=== PATIENT | male | born 1945 | race Asian ===

== ENCOUNTER 2017-10-25 09:07 | Inpatient (IN) | payer MEDICARE, OTHER ==
[~2017-10-25] VITALS: Ht 154.9 cm; Wt 69.9 kg
[2017-10-25] VITALS (15 sets, daily range): BP systolic 128–198; BP diastolic 50–100
[~2017-10-25 09:07] MED LIST: ALBU2.5V12 NEB; ALBU6.7H INH; AMLO10TA4 PO; ASPI-611 PO; CALC-159 PO; CARB100C8 PO; CETI10TA18 PO; CHOL10002 PO; DOCU100C40 PO; FOLI1TAB16 PO; HYDR25TA4 PO; IPRA30SP; LAMI100T7 PO; LOSA50TA3 PO; METH750T3 PO; MIRT45TA8 PO; MOME13HF INH; MORP30CA17 PO; MULT1TAB74 PO; NAPH15DR57 EACH EAR; QUET-1 PO; ROPI1TAB2 PO; SIMV40TA PO; SPIIN INH; TENO300T5 PO; ZAFI20TA14 PO
[2017-10-25 09:31] LABS: BASOPHILS % (AUTO) 0.3 % (0-1); EOSINOPHILS % (AUTO) 0.3 % (0-6); HEMATOCRIT 31.3 % (42.0-52.0); HEMOGLOBIN 10.5 g/dl (14.0-17.9); LYMPHOCYTES # (AUTO) 0.6 X10'3 (1.1-4.8); MEAN CORPUSCULAR HEMOGLOBIN 29.7 PG (27.0-31.0); MEAN CORPUSCULAR HGB CONC 33.5 % (33.0-36.5); MEAN CORPUSCULAR VOLUME 88.4 FL (78-98); MEAN PLATELET VOLUME 7.3 FL (7.4-10.4); MONOCYTES # (AUTO) 1.3 X10'3 (0-0.9); MONOCYTES % (AUTO) 13.4 % (2-12); NEUTROPHILS # (AUTO) 7.6 X10'3 (1.8-7.7); PLATELET COUNT 230 X10'3 (140-440); RED BLOOD COUNT 3.54 X10'6 (4.70-6.10); RED CELL DISTRIBUTION WIDTH 14.8 % (11.5-14.5); WHITE BLOOD COUNT 9.5 X10'3 (4.5-11.0)
[2017-10-25 09:40] LABS: INR 1.1 INR; PROTHROMBIN TIME 11.4 SECONDS (9.0-12.0)
[2017-10-25] MEDS ORDERED: normal saline 1000ML IV soln IVB ONE (09:45)
[2017-10-25] MEDS ORDERED: ondansetron/PF 4mg/2ml inj IV ONE (09:45)
[2017-10-25] MEDS: morphine 4 MG/ML inj SYRINge IV PRN (09:50)
[2017-10-25 09:51] LABS: ALANINE AMINOTRANSFERASE 20 U/L (12-78); ALBUMIN 2.1 G/DL (3.4-5.0); ALBUMIN/GLOBULIN RATIO 0.5 (1.1-1.5); ALKALINE PHOSPHATASE 107 IU/L (46-116); ANION GAP 6 (8-16); ASPARTATE AMINO TRANSFERASE 24 U/L (10-37); BILIRUBIN,TOTAL 0.3 MG/DL (0.1-1.0); BLOOD UREA NITROGEN 49 MG/DL (7-18); BUN/CREATININE RATIO 12.2 (5.4-32.0); CALCIUM 7.4 MG/DL (8.5-10.1); CHLORIDE 99 MMOL/L (99-107); CREATININE 4.01 MG/DL (0.60-1.10); GLUCOSE 122 MG/DL (70-104); POTASSIUM 3.9 MMOL/L (3.5-5.1); SODIUM 138 MMOL/L (135-145); TOTAL CARBON DIOXIDE 33.5 MMOL/L (24-32); TOTAL PROTEIN 6.7 G/DL (6.4-8.2); eGFR 15 ML/MIN
[2017-10-25 09:58] LABS: LIPASE < 50 U/L (73-393)
[2017-10-25] MEDS ORDERED: AMIO200T57 PO (12:13)
[2017-10-25] MEDS ORDERED: BUDE10.2 INH (12:19)
[2017-10-25] MEDS ORDERED: AMLO5TAB PO (12:19)
[2017-10-25] MEDS ORDERED: BUSP5TAB3 PO (12:19)
[2017-10-25] MEDS ORDERED: AZIT-72 PO (12:19)
[2017-10-25] MEDS ORDERED: CARV-50 PO (12:19)
[2017-10-25] MEDS ORDERED: ATOR40TA PO (12:19)
[2017-10-25] MEDS ORDERED: CARB100T7 PO (12:19)
[2017-10-25] MEDS ORDERED: CLON0.2T PO (12:22)
[2017-10-25] MEDS ORDERED: EDOX30TA PO (12:22)
[2017-10-25] MEDS ORDERED: CYAN-19 PO (12:22)
[2017-10-25] MEDS: normal saline 1000ml 1,000 ML IV SCH ×2 (12:31→22:31)
[2017-10-25] MEDS ORDERED: FLUT16SP2 BOTHNARES (12:34)
[2017-10-25] MEDS ORDERED: POTA10CA44 PO (12:34)
[2017-10-25] MEDS ORDERED: LABE300T PO (12:34)
[2017-10-25] MEDS ORDERED: TIOT18CA3 IH (12:34)
[2017-10-25] MEDS ORDERED: FLUO15CR TOP (12:34)
[2017-10-25] MEDS ORDERED: MONT10TA21 PO (12:34)
[2017-10-25] MEDS ORDERED: ROPI1TAB4 PO (12:34)
[2017-10-25] MEDS ORDERED: MORP30TA PO (12:34)
[2017-10-25] MEDS ORDERED: PRED20TA PO (12:34)
[2017-10-25] MEDS ORDERED: METH500T6 PO (12:34)
[2017-10-25] MEDS ORDERED: SENN-161 PO (12:34)
[2017-10-25] MEDS ORDERED: MECL-111 PO (12:34)
[2017-10-25] MEDS ORDERED: OMEP20CA10 PO (12:34)
[2017-10-25] MEDS ORDERED: FURO40TA4 PO (12:34)
[2017-10-25] MEDS ORDERED: LEVO25TA7 PO (12:34)
[2017-10-25] MEDS ORDERED: potassium Cl 40MEQ/NS 500ml 500 ML IV PRN ×2 (12:35)
[2017-10-25] MEDS ORDERED: HYDROmorphone inj. 0.5 MG/0.5 ML DISP.SYRIN IV PRN (12:35)
[2017-10-25] MEDS ORDERED: magnesium 4gm in 100ml NS 100 ML IV PRN ×2 (12:35→16:55)
[2017-10-25] MEDS ORDERED: acetaminophen 325mg tablet PO PRN (12:35)
[2017-10-25] MEDS ORDERED: potassium Cl 20 mEq SR tablet PO PRN ×4 (12:35→16:55)
[2017-10-25] MEDS ORDERED: magnesium hydroxide 30ml (MOM) UD suspension PO PRN (12:35)
[2017-10-25] MEDS ORDERED: magnesium Cl slow-release 64mg tablet PO PRN ×2 (12:35→16:55)
[2017-10-25] MEDS ORDERED: ondansetron/PF 4mg/2ml inj IV PRN ×3 (12:35→16:55)
[2017-10-25] MEDS ORDERED: mag hydrox/Alum hydrox/simeth 30ml oral suspension PO PRN (12:35)
[2017-10-25] MEDS ORDERED: magnesium 1gm/100ml D5W IVPB 50 ML IV PRN ×2 (12:35→16:55)
[2017-10-25] MEDS ORDERED: rocuronium 10mg/ml inj IV ONE (13:43)
[2017-10-25] MEDS ORDERED: propofol inj 20 ML IV ONE (13:43)
[2017-10-25] MEDS ORDERED: levoFLOXACIN-Levaquin 500mg/D5 100 ML IV SCH (13:45)
[2017-10-25] MEDS ORDERED: albuterol 2.5 MG/3 ML nebule NEB PRN (13:45)
[2017-10-25] MEDS: methylPREDNISolone sod succ/PF 40mg inj. IV SCH ×2 (14:00→20:29)
[2017-10-25] MEDS ORDERED: LIDOcaine 1% (10mg/ml) 2ml vial ONE (15:09)
[2017-10-25] MEDS ORDERED: midazolam 2 mg/2 ml injection ONE (15:09)
[2017-10-25] MEDS ORDERED: fentaNYL /PF 50mcg/ml 5ml ampule ONE (15:09)
[2017-10-25] MEDS ORDERED: sevoflurane 250ml liquid IH ONE (15:21)
[2017-10-25] MEDS ORDERED: ceFOXitin 1000 MG inj ONE ×2 (15:57)
[2017-10-25] MEDS: metroNIDAZOLE-Flagyl 500mg/NS 100 ML IV SCH ×2 (16:00→23:59)
[2017-10-25] MEDS ORDERED: morphine 10mg/ml inj. ONE (16:26)
[2017-10-25] MEDS ORDERED: ringers solution, lacted 1,000 ML IV SCH (16:47)
[2017-10-25] MEDS ORDERED: morphine 4 MG/ML inj SYRINge IV PRN ×2 (16:50)
[2017-10-25] MEDS ORDERED: Neutra Phos packet PO PRN (16:55)
[2017-10-25] MEDS: K, MAG and/or Phos replacement - Verify level? MC SCH (16:55)
[2017-10-25] MEDS: pantoprazole 40 MG vial IV SCH (16:55)
[2017-10-25] MEDS ORDERED: sodium phosphate inj. 30 MMOL in dextrose 5%-water 250 ML IV PRN (16:55)
[2017-10-25] MEDS ORDERED: sodium phosphate inj. 15 MMOL in dextrose 5%-water 150 ML IV PRN (16:55)
[2017-10-25] MEDS: propofol 1000mg/100ml bottle 100 ML IV PRN ×2 (17:02→20:48)
[2017-10-25 17:18] LABS: TRIGLYCERIDES 123 MG/DL (20-135)
[2017-10-25 17:35] LABS: ABG BASE EXCESS 6.6 mmol/L (-2.0-3.0); ABG HCO3 28.4 mmol/L (22.0-26.0); ABG OXYGEN SATURATION 92.7 % (95-98); ABG PCO2 (T) 31.3 mmHg (35.0-48.0); ABG PH (T) 7.576 (7.350-7.450); ALLEN'S TEST Positive; FCOHb 0.8 % (0.5-1.5); FMetHb 0.3 % (0.3-1.12); FO2Hb 91.7 % (94-100); PEEP 5 cm H2O; RESPIRATORY RATE 12 b/min; TIDAL VOLUME 500 mL; TOTAL HEMOGLOBIN 11.5 G/dl (14.0-18.0)
[2017-10-25 17:50] LABS: PHOSPHORUS 5.6 MG/DL (2.3-4.5)
[2017-10-25] MEDS: sodium chloride 0.45% 1,000 ML IV SCH (18:20)
[2017-10-25] MEDS: carVEDilol 12.5mg tablet PO SCH (20:30)
[2017-10-25] MEDS: FENTANYL-0.9 % NACL/PF 100 ML IV PRN (20:48)
[2017-10-25] MEDS: albuterol 2.5 MG/3 ML nebule NEB SCH (21:16)
[2017-10-26] VITALS (24 sets, daily range): BP systolic 114–206; BP diastolic 42–74
[2017-10-26 01:18] LABS: CLARITY,URINE CLEAR (Clear); COLOR,URINE YELLOW (Yellow); GLUCOSE, URINE 100 mg/dl (Neg); KETONES,URINE TRACE mg/dl (Neg); LEUKOCYTE ESTERASE ,URINE NEGATIVE (Neg); NITRITES, URINE NEGATIVE (Neg); OCCULT BLOOD,URINE SMALL (Neg); PROTEIN,URINE >=300 mg/dl (Neg); UROBILINOGEN,URINE 0.2 E.U/dL (0.2-1.0)
[2017-10-26 01:19] LABS: UA COLLECTION TYPE FOLEY CATH
[2017-10-26 01:27] LABS: BACTERIA,URINE NONE SEEN /HPF (Neg); SQUAMOUS EPITHELIAL CELL,UR NONE SEEN /LPF (FEW); WBC,URINE 0-4 /HPF (0-4)
[2017-10-26] MEDS: methylPREDNISolone sod succ/PF 40mg inj. IV SCH ×4 (02:21→19:26)
[2017-10-26] MEDS: FENTANYL-0.9 % NACL/PF 100 ML IV PRN (02:26)
[2017-10-26] MEDS: propofol 1000mg/100ml bottle 100 ML IV PRN ×2 (02:27→07:55)
[2017-10-26 03:16] LABS: ABG BASE EXCESS 7.1 mmol/L (-2.0-3.0); ABG HCO3 28.9 mmol/L (22.0-26.0); ABG OXYGEN SATURATION 94.2 % (95-98); ABG PCO2 (T) 31.1 mmHg (35.0-48.0); ABG PH (T) 7.586 (7.350-7.450); FCOHb 0.3 % (0.5-1.5); FMetHb 0.4 % (0.3-1.12); FO2Hb 93.5 % (94-100); MINUTE VOLUME 6 L/min; PEEP 5 cm H2O; RESPIRATORY RATE 12 b/min; RESPIRATORY RATE (OBSERVED) 12 b/min; TIDAL VOLUME 500 mL; TOTAL HEMOGLOBIN 10.1 G/dl (14.0-18.0)
[2017-10-26 04:13] LABS: BASOPHILS % (AUTO) 0 % (0-1); EOSINOPHILS % (AUTO) 0 % (0-6); HEMATOCRIT 28.6 % (42.0-52.0); HEMOGLOBIN 9.6 g/dl (14.0-17.9); LYMPHOCYTES # (AUTO) 0.3 X10'3 (1.1-4.8); LYMPHOCYTES % (AUTO) 2.6 % (21-51); MEAN CORPUSCULAR HEMOGLOBIN 29.7 PG (27.0-31.0); MEAN CORPUSCULAR HGB CONC 33.6 % (33.0-36.5); MEAN CORPUSCULAR VOLUME 88.6 FL (78-98); MONOCYTES # (AUTO) 0.5 X10'3 (0-0.9); MONOCYTES % (AUTO) 4.3 % (2-12); NEUTROPHILS # (AUTO) 11.7 X10'3 (1.8-7.7); NEUTROPHILS % (AUTO) 93.1 % (42-75); PLATELET COUNT 210 X10'3 (140-440); RED BLOOD COUNT 3.23 X10'6 (4.70-6.10); RED CELL DISTRIBUTION WIDTH 14.8 % (11.5-14.5); WHITE BLOOD COUNT 12.6 X10'3 (4.5-11.0)
[2017-10-26 04:28] LABS: ALANINE AMINOTRANSFERASE 15 U/L (12-78); ALBUMIN 1.6 G/DL (3.4-5.0); ALBUMIN/GLOBULIN RATIO 0.4 (1.1-1.5); ALKALINE PHOSPHATASE 91 IU/L (46-116); ANION GAP 7 (8-16); ASPARTATE AMINO TRANSFERASE 21 U/L (10-37); BILIRUBIN,TOTAL 0.3 MG/DL (0.1-1.0); BLOOD UREA NITROGEN 46 MG/DL (7-18); BUN/CREATININE RATIO 13.2 (5.4-32.0); CALCIUM 6.4 MG/DL (8.5-10.1); CHLORIDE 101 MMOL/L (99-107); CREATININE 3.48 MG/DL (0.60-1.10); GLUCOSE 132 MG/DL (70-104); MAGNESIUM 3.7 MG/DL (1.5-2.4); PHOSPHORUS 5.2 MG/DL (2.3-4.5); POTASSIUM 3.8 MMOL/L (3.5-5.1); SODIUM 139 MMOL/L (135-145); TOTAL CARBON DIOXIDE 31.2 MMOL/L (24-32); TOTAL PROTEIN 5.5 G/DL (6.4-8.2); eGFR 18 ML/MIN
[2017-10-26] MEDS: morphine 4 MG/ML inj SYRINge IV PRN ×5 (04:42→21:11)
[2017-10-26 04:53] LABS: INR 1.1 INR; PARTIAL THROMBOPLASTIN TIME 32 SECONDS (22-32); PROTHROMBIN TIME 11.2 SECONDS (9.0-12.0)
[2017-10-26] MEDS: albuterol 2.5 MG/3 ML nebule NEB SCH ×2 (07:09→20:21)
[2017-10-26] MEDS: sodium chloride 0.45% 1,000 ML IV SCH (07:56)
[2017-10-26] MEDS: metroNIDAZOLE-Flagyl 500mg/NS 100 ML IV SCH ×3 (07:58→23:59)
[2017-10-26] MEDS: pantoprazole 40 MG vial IV SCH (07:58)
[2017-10-26] MEDS: carVEDilol 12.5mg tablet PO SCH ×2 (07:58→19:26)
[2017-10-26] MEDS: K, MAG and/or Phos replacement - Verify level? MC SCH (08:00)
[2017-10-26] MEDS ORDERED: K and/or MAG REPLACEMENT MC SCH (08:00)
[2017-10-26] MEDS: normal saline 1000ml 1,000 ML IV SCH (08:08)
[2017-10-26] MEDS: diltiazem-NS 100mg/100ml 100 ML IV SCH ×2 (11:39→20:31)
[2017-10-26] MEDS ORDERED: Potassium Cl inj 40 MEQ in sodium chloride 0.45% 1,000 ML IV SCH (11:45)
[2017-10-26] MEDS: enalaprilat dihydrate 2.5mg/2ml vial IV PRN (14:25)
[2017-10-26] MEDS ORDERED: labetalol 20mg/4ml (5mg/ml) syringe IV PRN (16:10)
[2017-10-26] MEDS ORDERED: labetalol 20mg/4ml (5mg/ml) syringe IV ONE (16:13)
[2017-10-26] MEDS ORDERED: HYDROmorphone 1 mg/ml syringe ONE (18:40)
[2017-10-26] MEDS: HYDROmorphone 1 mg/ml syringe IV PRN (18:59)
[2017-10-26] MEDS: mineral oil/petrolatum ophthal oint EACHEYE SCH ×2 (19:11→22:29)
[2017-10-27] VITALS (19 sets, daily range): BP systolic 145–190; BP diastolic 54–98
[2017-10-27] MEDS: methylPREDNISolone sod succ/PF 40mg inj. IV SCH ×4 (02:16→19:32)
[2017-10-27 03:25] LABS: BASOPHILS % (AUTO) 0 % (0-1); MEAN PLATELET VOLUME 8.2 FL (7.4-10.4); RED CELL DISTRIBUTION WIDTH 14.5 % (11.5-14.5)
[2017-10-27 03:37] LABS: INR 1.1 INR; PARTIAL THROMBOPLASTIN TIME 32 SECONDS (22-32); PROTHROMBIN TIME 11.2 SECONDS (9.0-12.0)
[2017-10-27 03:39] LABS: EOSINOPHILS # (AUTO) 0.2 X10'3 (0-0.9); EOSINOPHILS % (AUTO) 1.6 % (0-6); HEMATOCRIT 29.6 % (42.0-52.0); HEMOGLOBIN 9.8 g/dl (14.0-17.9); LYMPHOCYTES # (AUTO) 0.3 X10'3 (1.1-4.8); LYMPHOCYTES % (AUTO) 2.7 % (21-51); MEAN CORPUSCULAR HEMOGLOBIN 29.8 PG (27.0-31.0); MEAN CORPUSCULAR HGB CONC 33.2 % (33.0-36.5); MEAN CORPUSCULAR VOLUME 89.5 FL (78-98); MONOCYTES # (AUTO) 0.4 X10'3 (0-0.9); MONOCYTES % (AUTO) 3.3 % (2-12); NEUTROPHILS # (AUTO) 11.4 X10'3 (1.8-7.7); NEUTROPHILS % (AUTO) 92.4 % (42-75); PLATELET COUNT 213 X10'3 (140-440); RED BLOOD COUNT 3.31 X10'6 (4.70-6.10); WHITE BLOOD COUNT 12.4 X10'3 (4.5-11.0)
[2017-10-27 03:42] LABS: ALANINE AMINOTRANSFERASE 20 U/L (12-78); ALBUMIN 1.6 G/DL (3.4-5.0); ALBUMIN/GLOBULIN RATIO 0.4 (1.1-1.5); ALKALINE PHOSPHATASE 102 IU/L (46-116); ANION GAP 9 (8-16); ASPARTATE AMINO TRANSFERASE 23 U/L (10-37); BILIRUBIN,TOTAL 0.4 MG/DL (0.1-1.0); BLOOD UREA NITROGEN 50 MG/DL (7-18); BUN/CREATININE RATIO 16.8 (5.4-32.0); CALCIUM 7.1 MG/DL (8.5-10.1); CHLORIDE 102 MMOL/L (99-107); CREATININE 2.98 MG/DL (0.60-1.10); GLUCOSE 126 MG/DL (70-104); MAGNESIUM 3.8 MG/DL (1.5-2.4); PHOSPHORUS 4.9 MG/DL (2.3-4.5); POTASSIUM 3.7 MMOL/L (3.5-5.1); SODIUM 140 MMOL/L (135-145); TOTAL CARBON DIOXIDE 28.7 MMOL/L (24-32); TOTAL PROTEIN 5.8 G/DL (6.4-8.2); eGFR 21 ML/MIN
[2017-10-27] MEDS: morphine 4 MG/ML inj SYRINge IV PRN ×5 (03:55→22:43)
[2017-10-27] MEDS: HYDROmorphone 1 mg/ml syringe IV PRN (05:51)
[2017-10-27] MEDS: enalaprilat dihydrate 2.5mg/2ml vial IV PRN (06:34)
[2017-10-27] MEDS: K, MAG and/or Phos replacement - Verify level? MC SCH (08:00)
[2017-10-27] MEDS: mineral oil/petrolatum ophthal oint EACHEYE SCH (08:00)
[2017-10-27] MEDS: levoFLOXACIN-Levaquin 250mg/D5 50 ML IV SCH (08:29)
[2017-10-27] MEDS: carVEDilol 12.5mg tablet PO SCH ×3 (08:29→19:32)
[2017-10-27] MEDS: pantoprazole 40 MG vial IV SCH (08:29)
[2017-10-27] MEDS: metroNIDAZOLE-Flagyl 500mg/NS 100 ML IV SCH ×3 (08:29→23:05)
[2017-10-27] MEDS: albuterol 2.5 MG/3 ML nebule NEB SCH ×2 (08:30→20:44)
[2017-10-27] MEDS: diltiazem-NS 100mg/100ml 100 ML IV SCH (09:15)
[2017-10-27] MEDS ORDERED: furosemide 40mg/4ml inj IV ONE (10:20)
[2017-10-27] MEDS ORDERED: methylnaltrexone br 12mg/0.6ml inj***SubQ only SQ ONE (10:20)
[2017-10-27] MEDS: lisinopril 20mg tablet PO SCH (11:04)
[2017-10-27] MEDS: amLODIPine 5mg tablet PO SCH (11:04)
[2017-10-27] MEDS: losartan 50mg tablet PO SCH (14:25)
[2017-10-27] MEDS: levoTHYROXINE 25mcg tablet PO SCH (14:25)
[2017-10-27] MEDS: busPIRone 5mg tablet PO SCH (19:32)
[2017-10-27] MEDS: docusate sod 100mg capsule PO SCH (19:33)
[2017-10-27] MEDS: carBAMazepine 100mg chewable tablet PO SCH (19:34)
[2017-10-27] MEDS: enoxaparin 40mg/0.4ml syringe SUBCUT SCH (19:34)
[2017-10-27] MEDS ORDERED: carVEDilol 12.5mg tablet PO SCH (20:00)
[2017-10-27] MEDS: atorvastatin 20mg tablet PO SCH (20:09)
[2017-10-27] MEDS ORDERED: hydrALAZINE 20mg/ml inj. IV PRN (21:15)
[2017-10-28] MEDS: methylPREDNISolone sod succ/PF 40mg inj. IV SCH ×4 (01:32→19:20)
[2017-10-28 03:00] VITALS: BP 153/73
[2017-10-28] MEDS: morphine 4 MG/ML inj SYRINge IV PRN ×6 (03:45→21:12)
[2017-10-28 05:14] LABS: BASOPHILS % (AUTO) 0.2 % (0-1); EOSINOPHILS # (AUTO) 0.1 X10'3 (0-0.9); EOSINOPHILS % (AUTO) 0.4 % (0-6); HEMATOCRIT 32.1 % (42.0-52.0); HEMOGLOBIN 10.7 g/dl (14.0-17.9); LYMPHOCYTES # (AUTO) 0.4 X10'3 (1.1-4.8); LYMPHOCYTES % (AUTO) 2.7 % (21-51); MEAN CORPUSCULAR HEMOGLOBIN 29.5 PG (27.0-31.0); MEAN CORPUSCULAR HGB CONC 33.2 % (33.0-36.5); MEAN CORPUSCULAR VOLUME 88.9 FL (78-98); MONOCYTES # (AUTO) 0.4 X10'3 (0-0.9); MONOCYTES % (AUTO) 3.1 % (2-12); NEUTROPHILS # (AUTO) 13.1 X10'3 (1.8-7.7); NEUTROPHILS % (AUTO) 93.6 % (42-75); PLATELET COUNT 243 X10'3 (140-440); RED BLOOD COUNT 3.61 X10'6 (4.70-6.10); RED CELL DISTRIBUTION WIDTH 14.4 % (11.5-14.5); WHITE BLOOD COUNT 13.9 X10'3 (4.5-11.0)
[2017-10-28 05:30] LABS: INR 1.2 INR; PARTIAL THROMBOPLASTIN TIME 33 SECONDS (22-32)
[2017-10-28 05:36] LABS: ALANINE AMINOTRANSFERASE 18 U/L (12-78); ALBUMIN 1.7 G/DL (3.4-5.0); ALBUMIN/GLOBULIN RATIO 0.4 (1.1-1.5); ALKALINE PHOSPHATASE 105 IU/L (46-116); ANION GAP 7 (8-16); ASPARTATE AMINO TRANSFERASE 32 U/L (10-37); BILIRUBIN,TOTAL 0.3 MG/DL (0.1-1.0); BLOOD UREA NITROGEN 56 MG/DL (7-18); BUN/CREATININE RATIO 20.4 (5.4-32.0); CHLORIDE 105 MMOL/L (99-107); CREATININE 2.75 MG/DL (0.60-1.10); GLUCOSE 150 MG/DL (70-104); MAGNESIUM 3.4 MG/DL (1.5-2.4); PHOSPHORUS 2.9 MG/DL (2.3-4.5); POTASSIUM 3.5 MMOL/L (3.5-5.1); SODIUM 142 MMOL/L (135-145); TOTAL CARBON DIOXIDE 29.7 MMOL/L (24-32); TOTAL PROTEIN 5.9 G/DL (6.4-8.2); eGFR 23 ML/MIN
[2017-10-28 06:00] VITALS: BP 156/64
[2017-10-28] MEDS: albuterol 2.5 MG/3 ML nebule NEB SCH ×2 (07:52→20:05)
[2017-10-28] MEDS: K, MAG and/or Phos replacement - Verify level? MC SCH (08:00)
[2017-10-28] MEDS ORDERED: amLODIPine 5mg tablet PO SCH (08:00)
[2017-10-28] MEDS ORDERED: EDOXABAN TOSYLATE 30 MG PO SCH (08:00)
[2017-10-28] MEDS: pantoprazole 40 MG vial IV SCH (08:49)
[2017-10-28] MEDS: metroNIDAZOLE-Flagyl 500mg/NS 100 ML IV SCH ×3 (08:49→23:33)
[2017-10-28] MEDS: carVEDilol 12.5mg tablet PO SCH ×2 (08:50→19:19)
[2017-10-28] MEDS: busPIRone 5mg tablet PO SCH ×2 (08:50→19:19)
[2017-10-28] MEDS: docusate sod 100mg capsule PO SCH ×2 (08:50→19:19)
[2017-10-28] MEDS: amLODIPine 5mg tablet PO SCH (08:51)
[2017-10-28] MEDS: lisinopril 20mg tablet PO SCH (08:51)
[2017-10-28] MEDS: levoTHYROXINE 25mcg tablet PO SCH (08:51)
[2017-10-28] MEDS: losartan 50mg tablet PO SCH (08:51)
[2017-10-28] MEDS: enoxaparin 40mg/0.4ml syringe SUBCUT SCH (08:52)
[2017-10-28] MEDS: carBAMazepine 100mg chewable tablet PO SCH ×2 (08:54→19:22)
[2017-10-28 11:00] VITALS: BP 151/91
[2017-10-28 15:00] VITALS: BP 165/75
[2017-10-28 19:00] VITALS: BP 149/89
[2017-10-28] MEDS: atorvastatin 20mg tablet PO SCH (19:19)
[2017-10-28 23:00] VITALS: BP 126/87
[2017-10-29] MEDS: morphine 4 MG/ML inj SYRINge IV PRN ×4 (00:14→19:52)
[2017-10-29] MEDS: methylPREDNISolone sod succ/PF 40mg inj. IV SCH ×4 (01:31→19:51)
[2017-10-29 03:00] VITALS: BP 147/94
[2017-10-29 05:06] LABS: BASOPHILS % (AUTO) 0.1 % (0-1); EOSINOPHILS % (AUTO) 0 % (0-6); HEMATOCRIT 33.5 % (42.0-52.0); HEMOGLOBIN 11.1 g/dl (14.0-17.9); LYMPHOCYTES # (AUTO) 0.3 X10'3 (1.1-4.8); LYMPHOCYTES % (AUTO) 2.7 % (21-51); MEAN CORPUSCULAR HEMOGLOBIN 29.2 PG (27.0-31.0); MEAN CORPUSCULAR HGB CONC 33.1 % (33.0-36.5); MEAN CORPUSCULAR VOLUME 88.4 FL (78-98); MEAN PLATELET VOLUME 8.1 FL (7.4-10.4); MONOCYTES # (AUTO) 0.4 X10'3 (0-0.9); MONOCYTES % (AUTO) 3.3 % (2-12); NEUTROPHILS # (AUTO) 11.7 X10'3 (1.8-7.7); NEUTROPHILS % (AUTO) 93.9 % (42-75); PLATELET COUNT 261 X10'3 (140-440); RED BLOOD COUNT 3.79 X10'6 (4.70-6.10); RED CELL DISTRIBUTION WIDTH 14.7 % (11.5-14.5); WHITE BLOOD COUNT 12.5 X10'3 (4.5-11.0)
[2017-10-29 05:15] LABS: INR 1.2 INR; PARTIAL THROMBOPLASTIN TIME 30 SECONDS (22-32)
[2017-10-29 05:22] LABS: ALANINE AMINOTRANSFERASE 25 U/L (12-78); ALBUMIN 1.8 G/DL (3.4-5.0); ALBUMIN/GLOBULIN RATIO 0.4 (1.1-1.5); ALKALINE PHOSPHATASE 100 IU/L (46-116); ANION GAP 4 (8-16); ASPARTATE AMINO TRANSFERASE 32 U/L (10-37); BILIRUBIN,TOTAL 0.3 MG/DL (0.1-1.0); BLOOD UREA NITROGEN 49 MG/DL (7-18); BUN/CREATININE RATIO 22.7 (5.4-32.0); CHLORIDE 107 MMOL/L (99-107); CREATININE 2.16 MG/DL (0.60-1.10); GLUCOSE 133 MG/DL (70-104); MAGNESIUM 3.2 MG/DL (1.5-2.4); PHOSPHORUS 3.2 MG/DL (2.3-4.5); POTASSIUM 3.7 MMOL/L (3.5-5.1); SODIUM 140 MMOL/L (135-145); TOTAL PROTEIN 5.9 G/DL (6.4-8.2); eGFR 30 ML/MIN
[2017-10-29] MEDS: albuterol 2.5 MG/3 ML nebule NEB SCH ×3 (07:33→20:11)
[2017-10-29] MEDS: K, MAG and/or Phos replacement - Verify level? MC SCH (08:00)
[2017-10-29] MEDS: metroNIDAZOLE-Flagyl 500mg/NS 100 ML IV SCH (08:14)
[2017-10-29] MEDS: pantoprazole 40 MG vial IV SCH (08:14)
[2017-10-29] MEDS: levoTHYROXINE 25mcg tablet PO SCH (08:15)
[2017-10-29] MEDS: losartan 50mg tablet PO SCH (08:15)
[2017-10-29] MEDS: carVEDilol 12.5mg tablet PO SCH ×2 (08:15→19:53)
[2017-10-29] MEDS: busPIRone 5mg tablet PO SCH ×2 (08:15→19:52)
[2017-10-29] MEDS: amLODIPine 5mg tablet PO SCH (08:15)
[2017-10-29] MEDS: docusate sod 100mg capsule PO SCH ×2 (08:15→19:54)
[2017-10-29] MEDS: lisinopril 20mg tablet PO SCH (08:16)
[2017-10-29] MEDS: carBAMazepine 100mg chewable tablet PO SCH ×2 (08:16→19:51)
[2017-10-29] MEDS: enoxaparin 40mg/0.4ml syringe SUBCUT SCH (08:17)
[2017-10-29 09:50] VITALS: BP 160/93
[2017-10-29] MEDS: levoFLOXACIN-Levaquin 250mg/D5 50 ML IV SCH (10:28)
[2017-10-29 11:00] VITALS: BP 138/83
[2017-10-29 15:00] VITALS: BP 137/84
[2017-10-29 19:00] VITALS: BP 141/91
[2017-10-29] MEDS: atorvastatin 20mg tablet PO SCH (20:30)
[2017-10-29 23:00] VITALS: BP 123/96
[2017-10-30] MEDS: methylPREDNISolone sod succ/PF 40mg inj. IV SCH ×4 (01:23→19:59)
[2017-10-30] MEDS: morphine 4 MG/ML inj SYRINge IV PRN ×4 (01:23→21:04)
[2017-10-30 03:00] VITALS: BP 168/104
[2017-10-30 05:30] VITALS: BP 148/94
[2017-10-30 05:44] LABS: BASOPHILS % (AUTO) 0.1 % (0-1); EOSINOPHILS # (AUTO) 0.1 X10'3 (0-0.9); EOSINOPHILS % (AUTO) 0.6 % (0-6); HEMATOCRIT 35.9 % (42.0-52.0); HEMOGLOBIN 11.9 g/dl (14.0-17.9); LYMPHOCYTES # (AUTO) 0.4 X10'3 (1.1-4.8); MEAN CORPUSCULAR HEMOGLOBIN 29.5 PG (27.0-31.0); MEAN CORPUSCULAR HGB CONC 33.2 % (33.0-36.5); MEAN CORPUSCULAR VOLUME 88.8 FL (78-98); MEAN PLATELET VOLUME 8.2 FL (7.4-10.4); MONOCYTES # (AUTO) 0.1 X10'3 (0-0.9); MONOCYTES % (AUTO) 0.5 % (2-12); NEUTROPHILS # (AUTO) 9.3 X10'3 (1.8-7.7); NEUTROPHILS % (AUTO) 94.8 % (42-75); PLATELET COUNT 257 X10'3 (140-440); RED BLOOD COUNT 4.04 X10'6 (4.70-6.10); RED CELL DISTRIBUTION WIDTH 14.6 % (11.5-14.5); WHITE BLOOD COUNT 9.8 X10'3 (4.5-11.0)
[2017-10-30 05:54] LABS: INR 1.1 INR; PARTIAL THROMBOPLASTIN TIME 28 SECONDS (22-32); PROTHROMBIN TIME 11.6 SECONDS (9.0-12.0)
[2017-10-30 06:18] LABS: ALANINE AMINOTRANSFERASE 27 U/L (12-78); ALBUMIN 1.8 G/DL (3.4-5.0); ALBUMIN/GLOBULIN RATIO 0.5 (1.1-1.5); ALKALINE PHOSPHATASE 92 IU/L (46-116); ANION GAP 7 (8-16); ASPARTATE AMINO TRANSFERASE 28 U/L (10-37); BILIRUBIN,TOTAL 0.3 MG/DL (0.1-1.0); BLOOD UREA NITROGEN 39 MG/DL (7-18); BUN/CREATININE RATIO 19.5 (5.4-32.0); CALCIUM 7.3 MG/DL (8.5-10.1); CHLORIDE 105 MMOL/L (99-107); GLUCOSE 130 MG/DL (70-104); MAGNESIUM 2.8 MG/DL (1.5-2.4); PHOSPHORUS 2.7 MG/DL (2.3-4.5); POTASSIUM 3.7 MMOL/L (3.5-5.1); SODIUM 139 MMOL/L (135-145); TOTAL CARBON DIOXIDE 27.3 MMOL/L (24-32); TOTAL PROTEIN 5.8 G/DL (6.4-8.2); eGFR 33 ML/MIN
[2017-10-30] MEDS: K, MAG and/or Phos replacement - Verify level? MC SCH (08:00)
[2017-10-30] MEDS ORDERED: HYDROcodone/acetaminophen 5mg/325mg tablet PO PRN (08:05)
[2017-10-30] MEDS: albuterol 2.5 MG/3 ML nebule NEB SCH ×2 (08:15→19:00)
[2017-10-30] MEDS: docusate sod 100mg capsule PO SCH ×2 (08:42→18:28)
[2017-10-30] MEDS: busPIRone 5mg tablet PO SCH ×2 (08:42→20:00)
[2017-10-30] MEDS: carVEDilol 12.5mg tablet PO SCH ×2 (08:42→19:59)
[2017-10-30] MEDS: losartan 50mg tablet PO SCH (08:44)
[2017-10-30] MEDS: carBAMazepine 100mg chewable tablet PO SCH ×2 (08:44→19:59)
[2017-10-30] MEDS: amLODIPine 5mg tablet PO SCH (08:44)
[2017-10-30] MEDS: lisinopril 20mg tablet PO SCH (08:44)
[2017-10-30] MEDS: levoTHYROXINE 25mcg tablet PO SCH (08:44)
[2017-10-30] MEDS: enoxaparin 40mg/0.4ml syringe SUBCUT SCH (08:45)
[2017-10-30 11:00] VITALS: BP 152/77
[2017-10-30] MEDS: levoFLOXACIN 250mg tablet PO SCH (11:33)
[2017-10-30 15:00] VITALS: BP 163/80
[2017-10-30 19:00] VITALS: BP 160/70
[2017-10-30] MEDS: lactobacillus rhamnosus 10,000 MMU CELLS/CAPSULE PO SCH (19:59)
[2017-10-30] MEDS: atorvastatin 20mg tablet PO SCH (20:00)
[2017-10-30 23:00] VITALS: BP 168/75
[2017-10-31 03:00] VITALS: BP 170/84
[2017-10-31] MEDS: morphine 4 MG/ML inj SYRINge IV PRN ×5 (03:04→23:01)
[2017-10-31] MEDS: methylPREDNISolone sod succ/PF 40mg inj. IV SCH ×4 (03:04→20:04)
[2017-10-31 06:00] VITALS: BP 179/78
[2017-10-31 06:03] LABS: INR 1.1 INR; PARTIAL THROMBOPLASTIN TIME 28 SECONDS (22-32); PROTHROMBIN TIME 11.4 SECONDS (9.0-12.0)
[2017-10-31 06:27] LABS: MAGNESIUM 2.4 MG/DL (1.5-2.4); PHOSPHORUS 3.2 MG/DL (2.3-4.5)
[2017-10-31] MEDS: lactobacillus rhamnosus 10,000 MMU CELLS/CAPSULE PO SCH ×2 (07:31→20:02)
[2017-10-31] MEDS: losartan 50mg tablet PO SCH (07:31)
[2017-10-31] MEDS: carBAMazepine 100mg chewable tablet PO SCH ×2 (07:31→20:03)
[2017-10-31] MEDS: amLODIPine 5mg tablet PO SCH (07:32)
[2017-10-31] MEDS: lisinopril 20mg tablet PO SCH (07:32)
[2017-10-31] MEDS: busPIRone 5mg tablet PO SCH ×2 (07:32→20:03)
[2017-10-31] MEDS: levoTHYROXINE 25mcg tablet PO SCH (07:32)
[2017-10-31] MEDS: pantoprazole 40mg Tablet.DR PO SCH (07:32)
[2017-10-31] MEDS: docusate sod 100mg capsule PO SCH ×4 (07:32→20:00)
[2017-10-31] MEDS: carVEDilol 12.5mg tablet PO SCH ×2 (07:32→20:03)
[2017-10-31] MEDS: enoxaparin 40mg/0.4ml syringe SUBCUT SCH (07:33)
[2017-10-31] MEDS: K, MAG and/or Phos replacement - Verify level? MC SCH (08:00)
[2017-10-31] MEDS: albuterol 2.5 MG/3 ML nebule NEB SCH ×2 (08:02→21:03)
[2017-10-31] MEDS: levoFLOXACIN 250mg tablet PO SCH (10:13)
[2017-10-31 11:00] VITALS: BP 167/67
[2017-10-31 15:00] VITALS: BP 164/75
[2017-10-31 19:00] VITALS: BP 165/89
[2017-10-31] MEDS: atorvastatin 20mg tablet PO SCH (21:12)
[2017-10-31 23:00] VITALS: BP 160/73
[2017-11-01] MEDS: methylPREDNISolone sod succ/PF 40mg inj. IV SCH ×3 (01:53→13:38)
[2017-11-01 03:00] VITALS: BP 159/73
[2017-11-01] MEDS: morphine 4 MG/ML inj SYRINge IV PRN ×4 (03:00→15:42)
[2017-11-01 05:40] LABS: INR 1.1 INR; PARTIAL THROMBOPLASTIN TIME 27 SECONDS (22-32)
[2017-11-01 05:43] LABS: MAGNESIUM 2.1 MG/DL (1.5-2.4); PHOSPHORUS 2.8 MG/DL (2.3-4.5)
[2017-11-01 06:00] VITALS: BP 172/83
[2017-11-01] MEDS: K, MAG and/or Phos replacement - Verify level? MC SCH (07:00)
[2017-11-01] MEDS: levoTHYROXINE 25mcg tablet PO SCH (07:16)
[2017-11-01] MEDS: lactobacillus rhamnosus 10,000 MMU CELLS/CAPSULE PO SCH (07:16)
[2017-11-01] MEDS: enoxaparin 40mg/0.4ml syringe SUBCUT SCH (07:16)
[2017-11-01] MEDS: docusate sod 100mg capsule PO SCH (07:16)
[2017-11-01] MEDS: pantoprazole 40mg Tablet.DR PO SCH (07:16)
[2017-11-01] MEDS: busPIRone 5mg tablet PO SCH (07:16)
[2017-11-01] MEDS: carVEDilol 12.5mg tablet PO SCH (07:17)
[2017-11-01] MEDS: losartan 50mg tablet PO SCH (07:17)
[2017-11-01] MEDS: lisinopril 20mg tablet PO SCH (07:17)
[2017-11-01] MEDS: amLODIPine 5mg tablet PO SCH (07:17)
[2017-11-01] MEDS: carBAMazepine 100mg chewable tablet PO SCH (07:24)
[2017-11-01] MEDS: albuterol 2.5 MG/3 ML nebule NEB SCH (08:50)
[2017-11-01] MEDS: levoFLOXACIN 250mg tablet PO SCH (10:57)
[2017-11-01 11:53] VITALS: BP 158/85
== END 2017-11-01 16:30 | DRG 335 ==
LOC: ER 09:07 → ED HOLD 12:31 → CICU 2S 17:58 → ICU 2S 10-26 20:05 → PCU 3S 10-27 16:20
PROVIDERS: ADMIT Internal Medicine; ATTEND Internal Medicine Critical Care Medicine
PROC: 0D9670Z Drainage of Stomach with Drainage Device, Via Natural or Artificial Opening (ICD-10-PCS; 2017-10-25)
PROC: 0DN80ZZ Release Small Intestine, Open Approach (ICD-10-PCS; principal; 2017-10-25 15:21)
DX: K56.50 Intestinal adhesions [bands], unspecified as to partial versus complete obstruction (principal); N17.0 Acute kidney failure with tubular necrosis; N39.0 Urinary tract infection, site not specified; B96.1 Klebsiella pneumoniae [K. pneumoniae] as the cause of diseases classified elsewhere; E03.9 Hypothyroidism, unspecified; N18.3 Chronic kidney disease, stage 3 (moderate); E78.00 Pure hypercholesterolemia, unspecified; E86.0 Dehydration; G89.29 Other chronic pain; K76.9 Liver disease, unspecified; M54.9 Dorsalgia, unspecified; F12.90 Cannabis use, unspecified, uncomplicated; G40.909 Epilepsy, unspecified, not intractable, without status epilepticus; I12.9 Hypertensive chronic kidney disease with stage 1 through stage 4 chronic kidney disease, or unspecified chronic kidney disease; I48.2 Chronic atrial fibrillation; J44.9 Chronic obstructive pulmonary disease, unspecified; Z66 Do not resuscitate; Z90.49 Acquired absence of other specified parts of digestive tract; Z99.81 Dependence on supplemental oxygen; Z79.899 Other long term (current) drug therapy; Z82.41 Family history of sudden cardiac death; Z83.3 Family history of diabetes mellitus
CPT/HCPCS: 36415; 36600; 71045; 74018; 74150; 80053; 81001; 82803; 82948; 83605; 83690; 83735; 84100; 84439; 84443; 84478; 85018; 85025; 85610; 85730; 86885; 86900; 86901; 86920; 87070; 87077; 87186; 93005; 94002; 94003; 94640; 94760; 97110; 97116; 97162; 97530; 99291; A6213; A6255; A6258; A6449; A7000; A7015; C1758; C9113; J0360; J0694; J1170; J1650; J1940; J1956; J2250; J2270; J2405; J2704; J2920; J3010; J3480; J3490; J7030; J7120

== ENCOUNTER 2018-08-22 00:25 | Emergency (ER) | payer MEDICARE, OTHER ==
[~2018-08-22] VITALS: Ht 152.4 cm; Wt 67.3 kg
[~2018-08-22 00:25] MED LIST changes: -AMLO10TA4 PO; +AMLO5TAB PO; -ASPI-611 PO; +ATOR40TA PO; +BUSP5TAB3 PO; -CALC-159 PO; -CARB100C8 PO; +CARB100T7 PO; +CARV-50 PO; -CETI10TA18 PO; -CHOL10002 PO; +EDOX30TA PO; -FOLI1TAB16 PO; -HYDR25TA4 PO; -IPRA30SP; -LAMI100T7 PO; +LEVO25TA7 PO; -METH750T3 PO; -MIRT45TA8 PO; -MOME13HF INH; -MORP30CA17 PO; -MULT1TAB74 PO; -NAPH15DR57 EACH EAR; -QUET-1 PO; -ROPI1TAB2 PO; -SIMV40TA PO; -SPIIN INH; -TENO300T5 PO; -ZAFI20TA14 PO
[2018-08-22 00:30] VITALS: BP 141/47
[2018-08-22] MEDS ORDERED: LIDOcaine 4% (40 mg/ml) topical solution 50ml TP ONE (00:35)
[2018-08-22] MEDS ORDERED: phenylephrine 1% (X-tra strg) 15ml nasal spray NS ONE (00:35)
== END 2018-08-22 02:01 | disposition home or self-care (01) ==
LOC: ER 00:26
DX: R04.0 Epistaxis (principal); E78.00 Pure hypercholesterolemia, unspecified; I10 Essential (primary) hypertension; J44.9 Chronic obstructive pulmonary disease, unspecified; G89.29 Other chronic pain; F17.210 Nicotine dependence, cigarettes, uncomplicated; F12.90 Cannabis use, unspecified, uncomplicated; Z98.890 Other specified postprocedural states; Z79.899 Other long term (current) drug therapy
CPT/HCPCS: 30901; 99284